=== PATIENT | male | born 1955 | race Caucasian/White ===

== ENCOUNTER → 2023-10-31 13:23 | Outpatient (REF) | payer MEDICARE, OTHER, SELFPAY | LOC: HWRAD 13:23 | PROVIDERS: ATTENDING PHYSICIAN Radiology Radiation Oncology; FAMILY PHYSICIAN Nurse Practitioner | DX: C34.12 Malignant neoplasm of upper lobe, left bronchus or lung (principal) | CPT/HCPCS: 71250 ==

== ENCOUNTER → 2024-02-12 08:14 | Outpatient (REF) | payer MEDICARE, OTHER, SELFPAY | LOC: HWRAD 08:14 | PROVIDERS: ATTENDING PHYSICIAN Radiology Radiation Oncology; FAMILY PHYSICIAN Internal Medicine | DX: C34.12 Malignant neoplasm of upper lobe, left bronchus or lung (principal) | CPT/HCPCS: 71250 ==

== ENCOUNTER → 2024-06-03 10:42 | Outpatient (REF) | payer MEDICARE, OTHER, SELFPAY | LOC: HWRAD 10:42 | PROVIDERS: ATTENDING PHYSICIAN Radiology Radiation Oncology; FAMILY PHYSICIAN Nurse Practitioner | DX: C34.12 Malignant neoplasm of upper lobe, left bronchus or lung (principal) | CPT/HCPCS: 71250 ==

== ENCOUNTER → 2024-11-04 14:48 | Outpatient (REF) | payer MEDICARE, OTHER, SELFPAY | LOC: HWRAD 14:48 | PROVIDERS: ATTENDING PHYSICIAN Physical Medicine & Rehabilitation; FAMILY PHYSICIAN Nurse Practitioner | DX: M54.16 Radiculopathy, lumbar region (principal) | CPT/HCPCS: 72131 ==

== ENCOUNTER → 2024-12-09 12:55 | Outpatient (REF) | payer MEDICARE, OTHER, SELFPAY | LOC: HWRAD 12:55 | PROVIDERS: ATTENDING PHYSICIAN Radiology Radiation Oncology; FAMILY PHYSICIAN Nurse Practitioner; REFERRING PHYSICIAN Physical Medicine & Rehabilitation | DX: C34.12 Malignant neoplasm of upper lobe, left bronchus or lung (principal); Z01.818 Encounter for other preprocedural examination | CPT/HCPCS: 71250; 93005 ==

== ENCOUNTER → 2025-01-11 08:30 | Outpatient (REF) | payer MEDICARE, OTHER, SELFPAY | LOC: RAD 08:30 | PROVIDERS: ATTENDING PHYSICIAN Radiology Radiation Oncology; FAMILY PHYSICIAN Nurse Practitioner | DX: C34.12 Malignant neoplasm of upper lobe, left bronchus or lung (principal) | CPT/HCPCS: 70491; Q9967 ==

== ENCOUNTER → 2025-02-03 08:03 | Outpatient (REF) | payer MEDICARE, OTHER, SELFPAY ==
[2025-02-03] VITALS (8 sets, daily range): BP systolic 68–130; BP diastolic 70–77
[2025-02-03 08:32] LABS: Hematocrit 40.4 % (39.0-52.0); Mean Corp Hgb Conc. 34.7 g/dL (33.0-37.0); Mean Corpuscular Hgb 32.6 pg (27.0-31.0); Mean Corpuscular Volume 94.2 fL (80.0-94.0); Mean Platelet Volume 8.8 fL (7.4-10.4); Platelet Count 331 10^3/uL (130-400); Red Blood Cell Count 4.29 10^6/uL (4.70-6.10); Red Cell Dist. Width 11.7 % (11.5-14.5); White Blood Cell Count 6.7 10^3/uL (4.8-10.8)
[2025-02-03 08:44] LABS: INR 0.85
== END ==
LOC: RADI 08:03
PROVIDERS: ATTENDING PHYSICIAN Radiology Radiation Oncology; FAMILY PHYSICIAN Nurse Practitioner; REFERRING PHYSICIAN Physician Assistant
DX: C77.0 Secondary and unspecified malignant neoplasm of lymph nodes of head, face and neck (principal); C34.90 Malignant neoplasm of unspecified part of unspecified bronchus or lung; D68.8 Other specified coagulation defects
CPT/HCPCS: 88305; 20206; 36415; 76942; 85027; 85610; 88313; 88333; 88341; 88342; 99152; 99153

== ENCOUNTER → 2025-03-03 16:05 | Outpatient (REF) | payer MEDICARE, OTHER, SELFPAY | LOC: RAD 16:05 | PROVIDERS: ATTENDING PHYSICIAN Internal Medicine Hematology & Oncology; FAMILY PHYSICIAN Nurse Practitioner | DX: C34.12 Malignant neoplasm of upper lobe, left bronchus or lung (principal) | CPT/HCPCS: 70470; Q9967 ==

== ENCOUNTER → 2025-03-29 16:25 | Outpatient (REF) | payer MEDICARE, OTHER, SELFPAY ==
[2025-03-29 15:05] LABS: Hematocrit 36.2 % (39.0-52.0); Hemoglobin 12.9 g/dL (13.0-18.0); Mean Corp Hgb Conc. 35.6 g/dL (33.0-37.0); Mean Corpuscular Volume 91.4 fL (80.0-94.0); Platelet Count 334 10^3/uL (130-400); Red Cell Dist. Width 11.6 % (11.5-14.5)
[2025-03-29 15:42] LABS: ALT (SGPT) 20 U/L (0-50); AST (SGOT) 27 U/L (17-59); Albumin 4.2 g/dl (3.5-5.0); Alkaline Phosphatase 155 U/L (38-126); Blood Urea Nitrogen 12 mg/dl (9-20); Calcium 9.4 mg/dl (8.4-10.2); Carbon Dioxide 23 mmol/L (22-30); Chloride 100 mmol/L (98-107); Glucose 91 mg/dl (70-99); Potassium 4.6 mmol/L (3.5-5.1); Sodium 126 mmol/L (135-145); Total Protein 6.8 g/dl (6.3-8.2); eGFR > 60.00
[2025-03-29 16:12] LABS: TSH 1.87 uIU/ml (0.47-4.68)
== END ==
LOC: OIDL 16:25
PROVIDERS: ATTENDING PHYSICIAN Internal Medicine Hematology & Oncology
DX: C34.12 Malignant neoplasm of upper lobe, left bronchus or lung (principal); E03.9 Hypothyroidism, unspecified
CPT/HCPCS: 80053; 84443; 85025

== ENCOUNTER 2025-04-04 18:44 | Emergency (ER) | payer MEDICARE, OTHER, SELFPAY ==
[2025-04-04 18:50] VITALS: BP 120/65
--- NOTE | 2025-04-04 21:16 | ED.GENMED ---
History of Present Illness
<Yaya Echeverria PA-C - Last Filed: 04/06/25 06:38>
General
Chief Complaint: Swelling
Time Seen by Provider: 04/04/25 20:53
History of Present Illness
History of Present Illness:
70-year-old male presents to the emergency department for evaluation of swelling and pain to the left jaw for the past several days. He was encouraged to come to the ED for a CT scan by his oncology team. Currently being treated for lung cancer
with chemotherapy last treatment was last week. Denies any dysphagia or odynophagia. No fevers or night sweats.
Past History
<Yaya Echeverria PA-C - Last Filed: 04/06/25 06:38>
Social History
Tobacco: Non-smoker
Personal:
Living: with family
Employment: Employed
Review of Systems
<Yaya Echeverria PA-C - Last Filed: 04/06/25 06:38>
Review of Systems
Allergies reviewed?: Yes
All Other Systems: ROS reviewed and negative except as documented in HPI and ROS
Phy Exam
<Yaya Echeverria PA-C - Last Filed: 04/06/25 06:38>
Physical Exam
Physical Exam:
GEN: Well appearing, NAD, WDWN
HEENT: Oral mucosa moist, no scleral icterus. Soft boggy swelling to the left mandible, no TMJ range of motion restriction, no crepitus, no palpable adenopathy. Oropharynx clear. Numerous dental caries and abscessed teeth, fluctuance palpated to
the left lower buccal mucosa
Cardiac: Regular rate
Lung: No respiratory distress, no tachypnea
MSK: No gross deformity or injuries
Skin: Good color, no pallor or jaundice, no rashes
Neuro: AO x3, moves all extremities freely
Psych: Calm, cooperative
Scores
<Elizabeth Maria PA-C - Last Filed: 04/05/25 00:33>
Heart Failure Risk
Heart Failure Risk Score: Not Applicable
Course
<Yaya Echeverria PA-C - Last Filed: 04/06/25 06:38>
Orders/Labs/Results
Orders:
Orders
04/04/25 21:15
Complete Blood Count/With Diff Urgent
Comprehensive Metabolic Panel Urgent
Manual Differential Urgent
Serum Osmolality Urgent
Comment: ADD ON
04/04/25 21:17
CT Neck With Iv Contrast Urgent
Comment:
Reason For Exam: L mandible swelling/poss dental abscess
04/04/25 23:18
Add On- LAB Urgent
Tests Added?: serum osmolality
04/04/25 23:29
Ampicillin/Sulbactam 3 G [Unasyn] 3 gm 0.9% Sodium Chloride 100 ml [Nss] 100 ml IV NOW
04/04/25 23:40
Osmolality, Random Urine Urgent
Date Specimen was Collected: 04/04/25
Time Specimen was Collected: 23:39
Urine Sodium Urgent
Date Specimen was Collected: 04/04/25
Time Specimen was Collected: 23:39
Abnormal Lab Results
04/04/25 04/04/25
21:15 23:40
WBC 16.3 H 10^3/uL
(4.8-10.8)
RBC 4.02 L 10^6/uL
(4.70-6.10)
Hgb 12.8 L g/dL
(13.0-18.0)
Hct 36.6 L %
(39.0-52.0)
MCH 31.8 H pg
(27.0-31.0)
Abs Neuts (Manual) 12.7 H 10^3/uL
(1.4-6.5)
Segmented Neutrophils 78 H %
(42-75)
Lymphocytes (Manual) 18 L %
(20-51)
Sodium 125 L mmol/L
(135-145)
Chloride 95 L mmol/L
(98-107)
Serum Osmolality 263 L mOsm/kg
(275-300)
Alkaline Phosphatase 162 H U/L
(38-126)
Urine Osmolality 187 L mOsm/kg
(300-900)
Urine Sodium 8 L mmol/L
(30-90)
04/04/25 21:15
04/04/25 21:15
Vital Signs
Initial and Last Documented VS:
Initial Vital Signs
Temp Pulse Resp BP Pulse Ox
98.0 F 96 20 120/65 98
04/04/25 18:50 04/04/25 18:50 04/04/25 18:50 04/04/25 18:50 04/04/25 18:50
Last Documented Vital Signs
Temp Pulse Resp BP Pulse Ox
98.5 F 96 20 120/65 98
04/04/25 21:26 04/04/25 18:50 04/04/25 18:50 04/04/25 18:50 04/04/25 21:18
Traceylt;Elizabeth Maria PA-C - Last Filed: 04/05/25 00:33>
Orders/Labs/Results
Orders:
Orders
04/04/25 21:15
Complete Blood Count/With Diff Urgent
Comprehensive Metabolic Panel Urgent
Manual Differential Urgent
Serum Osmolality Urgent
Comment: ADD ON
04/04/25 21:17
CT Neck With Iv Contrast Urgent
Comment:
Reason For Exam: L mandible swelling/poss dental abscess
04/04/25 23:18
Add On- LAB Urgent
Tests Added?: serum osmolality
04/04/25 23:29
Ampicillin/Sulbactam 3 G [Unasyn] 3 gm 0.9% Sodium Chloride 100 ml [Nss] 100 ml IV NOW
04/04/25 23:40
Osmolality, Random Urine Urgent
Date Specimen was Collected: 04/04/25
Time Specimen was Collected: 23:39
Urine Sodium Urgent
Date Specimen was Collected: 04/04/25
Time Specimen was Collected: 23:39
Abnormal Lab Results
04/04/25 04/04/25
21:15 23:40
WBC 16.3 H 10^3/uL
(4.8-10.8)
RBC 4.02 L 10^6/uL
(4.70-6.10)
Hgb 12.8 L g/dL
(13.0-18.0)
Hct 36.6 L %
(39.0-52.0)
MCH 31.8 H pg
(27.0-31.0)
Abs Neuts (Manual) 12.7 H 10^3/uL
(1.4-6.5)
Segmented Neutrophils 78 H %
(42-75)
Lymphocytes (Manual) 18 L %
(20-51)
Sodium 125 L mmol/L
(135-145)
Chloride 95 L mmol/L
(98-107)
Serum Osmolality 263 L mOsm/kg
(275-300)
Alkaline Phosphatase 162 H U/L
(38-126)
Urine Osmolality 187 L mOsm/kg
(300-900)
Urine Sodium 8 L mmol/L
(30-90)
04/04/25 21:15
04/04/25 21:15
Vital Signs
Initial and Last Documented VS:
Initial Vital Signs
Temp Pulse Resp BP Pulse Ox
98.0 F 96 20 120/65 98
04/04/25 18:50 04/04/25 18:50 04/04/25 18:50 04/04/25 18:50 04/04/25 18:50
Last Documented Vital Signs
Temp Pulse Resp BP Pulse Ox
98.5 F 96 20 120/65 98
04/04/25 21:26 04/04/25 18:50 04/04/25 18:50 04/04/25 18:50 04/04/25 21:18
Procedures
<Yaya Echeverria PA-C - Last Filed: 04/06/25 06:38>
IV Access
Indication: RN unable to obtain
Performed by:: Yaya Echeverria PA-C
Site:: L forearm
Gauge:: 20g
Ultrasound Guidance: Yes
<Yaya Echeverria PA-C - Last Filed: 04/06/25 06:38>
MDM/Problems Addressed
MDM/Problems Addressed:
70-year-old male presents with left-sided jaw swelling, found to have dental abscess by imaging and clinical exam. From the standpoint although he has leukocytosis I feel he is reasonable for discharge home however will give IV antibiotics in the
ED as the patient is immunocompromised on chemotherapy. 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
years. However in the past 1 to 2 weeks he has not consumed as much alcohol due to chemotherapy and diarrhea. Serum osmolality and urine sodium/osmolality sent for completeness however will likely recommend a fluid restriction of 48 ounces with
follow-up sodium level in 5 to 7 days.
<Yaya Echeverria PA-C - Last Filed: 04/06/25 06:38>
*Pulse Oximetry
SaO2: 98
Oxygen Mode of Delivery: Room air
<Elizabeth Maria PA-C - Last Filed: 04/05/25 00:33>
*Pulse Oximetry
Patient hypoxic: no
*Critical Care Note
Total Time (30-74mins, 75-104mins- exclusive of procedures): Not Applicable
<Elizabeth Maria PA-C - Last Filed: 04/05/25 00:33>
Update Note
Update Note:
On my assessment, patient is well appearing and no acute distress. He has no additional questions. We discussed fluid restriction. Patient stable for discharge.
ED Attending Note
<Yaya Echeverria PA-C - Last Filed: 04/06/25 06:38>
-
Portions of this chart may have been created with voice recognition software.� Occasional wrong word or��sound alike� substitutions may have occurred due to the inherent limitations of voice recognition software.
Discharge Plan
Departure
Patient Disposition: Home (Routine Discharge)
Date of Disposition: 04/05/25
Time of Disposition: 00:34
Patient with high blood pressure during this ER visit?: No
Discharge Problem:
Abscess, dental, Acute hyponatremia
Instructions: Hyponatremia, Dental abscess - ED discharge instructions
Prescriptions:
New
amoxicillin-pot clavulanate 875-125 mg tablet
1 tab PO BID Qty: 14 0RF
No Action
cetirizine-pseudoephedrine [Zyrtec-D] 1 EACH tablet extended release 12 hr
1 ea PO DAILYPRN PRN (Reason: allergies)
atorvastatin 20 MG tablet
20 mg PO DAILY
cetirizine [Zyrtec] 10 MG tablet
10 mg PO DAILY
fluticasone propion-salmeterol [Wixela Inhub] 1 EACH blister with device
1 ea IH BID
Referrals:
Nellie Howe CRNP [Family Provider, Internal Medicine]
Activity Restrictions/Additional Instructions:
In regards to your dental infection we will start you on antibiotics, please follow-up with your dentist as soon as possible
Regards to your low sodium, you have had this in the past however not as severe as today. I suspect this is largely due to your excess beer intake, and decreasing your beer consumption will improve these numbers however for the next week I will
recommend a fluid restriction of 48 ounces (all liquids!) daily for 7 days, and have your sodium level rechecked in 5-7 days
Interventions
Interventions:
*Risk Screen - Suicide Last Done: 04/04/25 21:23
*General Assessment Last Done: 04/04/25 18:50
*Neglect/Abuse Screening Last Done: 04/04/25 21:23
*ED- Fall Risk Assessment Last Done: 04/04/25 21:23
*ED COVID-19 Vaccine History Last Done: 04/04/25 21:23
*Nursing Disposition Last Done: 04/05/25 00:54
ED- Cardiac Assessment Last Done: 04/04/25 21:22
ED- Pulmonary Assessment Last Done: 04/04/25 21:22
ED-Skin Assessment Last Done: 04/04/25 21:22
Discharge Date and Time
Discharge Date/Time: 04/05/25 00:54
Print Language: SWEDISH
[2025-04-04 21:36] LABS: Hematocrit 36.6 % (39.0-52.0); Hemoglobin 12.8 g/dL (13.0-18.0); Mean Corp Hgb Conc. 35.0 g/dL (33.0-37.0); Mean Corpuscular Volume 91.0 fL (80.0-94.0); Platelet Count 229 10^3/uL (130-400); Red Cell Dist. Width 11.7 % (11.5-14.5)
[2025-04-04 21:57] LABS: ALT (SGPT) 26 U/L (0-50); AST (SGOT) 29 U/L (17-59); Albumin 4.0 g/dl (3.5-5.0); Alkaline Phosphatase 162 U/L (38-126); Blood Urea Nitrogen 20 mg/dl (9-20); Calcium 8.6 mg/dl (8.4-10.2); Carbon Dioxide 28 mmol/L (22-30); Chloride 95 mmol/L (98-107); Glucose 88 mg/dl (70-99); Potassium 3.8 mmol/L (3.5-5.1); Sodium 125 mmol/L (135-145); Total Protein 6.6 g/dl (6.3-8.2); eGFR > 60.00
[2025-04-04 23:14] LABS: Absolute Neutrophils -Man Diff 12.7 10^3/uL (1.4-6.5); Normal RBC Morphology Yes; Platelets Checked Yes; Total Cells Counted 100
[2025-04-04] MEDS: UNASYN IV (23:33)
== END 2025-04-05 00:54 | disposition home or self-care (01) ==
LOC: EMR 18:44
PROVIDERS: Emergency Medicine; Physician Assistant; EMERGENCY PHYSICIAN Emergency Medicine; FAMILY PHYSICIAN Nurse Practitioner
DX: K04.7 Periapical abscess without sinus (principal); E87.1 Hypo-osmolality and hyponatremia; C34.90 Malignant neoplasm of unspecified part of unspecified bronchus or lung; Z79.60 Long term (current) use of unspecified immunomodulators and immunosuppressants; D84.821 Immunodeficiency due to drugs
CPT/HCPCS: 99284; 96374; 70491; 80053; 83930; 83935; 84300; 85025; Q9967

== ENCOUNTER → 2025-04-15 08:35 | Outpatient (REF) | payer MEDICARE, OTHER, SELFPAY ==
[2025-04-15 09:11] VITALS: BP 125/79; BP_SYST 73
[2025-04-15 09:40] VITALS: BMI 29.4
[2025-04-15] MEDS: ANCEF 10 IV (09:52)
[2025-04-15 10:30] VITALS: BP 127/76; BP_SYST 74
[2025-04-15 10:36] VITALS: BP 108/66
== END ==
LOC: RADI 08:35
PROVIDERS: ATTENDING PHYSICIAN Internal Medicine Hematology & Oncology
DX: C34.12 Malignant neoplasm of upper lobe, left bronchus or lung (principal)
CPT/HCPCS: 36561; 76942; 77002; 99152; C1788

== ENCOUNTER → 2025-04-19 07:09 | Outpatient (REF) | payer MEDICARE, OTHER, SELFPAY ==
[2025-04-19 09:27] LABS: Hematocrit 35.1 % (39.0-52.0); Hemoglobin 12.0 g/dL (13.0-18.0); Mean Corp Hgb Conc. 34.2 g/dL (33.0-37.0); Mean Corpuscular Volume 95.1 fL (80.0-94.0); Nucleated Red Blood Cells % 0 % (-); Platelet Count 378 10^3/uL (130-400); Red Cell Dist. Width 12.0 % (11.5-14.5)
[2025-04-19 09:48] LABS: ALT (SGPT) 24 U/L (0-50); AST (SGOT) 23 U/L (17-59); Albumin 3.7 g/dl (3.5-5.0); Alkaline Phosphatase 184 U/L (38-126); Blood Urea Nitrogen 12 mg/dl (9-20); Calcium 9.0 mg/dl (8.4-10.2); Carbon Dioxide 27 mmol/L (22-30); Chloride 107 mmol/L (98-107); Glucose 84 mg/dl (70-99); Potassium 4.6 mmol/L (3.5-5.1); Sodium 139 mmol/L (135-145); Total Protein 6.3 g/dl (6.3-8.2); eGFR > 60.00
[2025-04-19 10:16] LABS: TSH 3.24 uIU/ml (0.47-4.68)
== END ==
LOC: HWLAB 07:09
PROVIDERS: ATTENDING PHYSICIAN Internal Medicine Hematology & Oncology; FAMILY PHYSICIAN Nurse Practitioner
DX: C34.12 Malignant neoplasm of upper lobe, left bronchus or lung (principal); E78.5 Hyperlipidemia, unspecified
CPT/HCPCS: 36415; 80053; 84443; 85025

== ENCOUNTER → 2025-05-10 07:12 | Outpatient (REF) | payer MEDICARE, OTHER, SELFPAY ==
[2025-05-10 09:44] LABS: Hematocrit 31.3 % (39.0-52.0); Hemoglobin 10.5 g/dL (13.0-18.0); Mean Corp Hgb Conc. 33.5 g/dL (33.0-37.0); Mean Corpuscular Volume 96.9 fL (80.0-94.0); Nucleated Red Blood Cells % 0 % (-); Platelet Count 205 10^3/uL (130-400); Red Cell Dist. Width 13.0 % (11.5-14.5)
[2025-05-10 09:55] LABS: ALT (SGPT) 23 U/L (0-50); AST (SGOT) 24 U/L (17-59); Albumin 3.8 g/dl (3.5-5.0); Alkaline Phosphatase 167 U/L (38-126); Blood Urea Nitrogen 14 mg/dl (9-20); Calcium 9.1 mg/dl (8.4-10.2); Carbon Dioxide 26 mmol/L (22-30); Chloride 107 mmol/L (98-107); Glucose 87 mg/dl (70-99); Potassium 4.5 mmol/L (3.5-5.1); Sodium 138 mmol/L (135-145); Total Protein 6.4 g/dl (6.3-8.2); eGFR > 60.00
[2025-05-10 10:24] LABS: TSH 3.84 uIU/ml (0.47-4.68)
== END ==
LOC: HWLAB 07:12
PROVIDERS: ATTENDING PHYSICIAN Internal Medicine Hematology & Oncology; FAMILY PHYSICIAN Nurse Practitioner
DX: C34.12 Malignant neoplasm of upper lobe, left bronchus or lung (principal); E78.5 Hyperlipidemia, unspecified
CPT/HCPCS: 36415; 80053; 84443; 85025

== ENCOUNTER → 2025-05-31 07:11 | Outpatient (REF) | payer MEDICARE, OTHER, SELFPAY ==
[2025-05-31 09:45] LABS: Hematocrit 31.5 % (39.0-52.0); Hemoglobin 10.5 g/dL (13.0-18.0); Mean Corp Hgb Conc. 33.3 g/dL (33.0-37.0); Mean Corpuscular Volume 100.3 fL (80.0-94.0); Nucleated Red Blood Cells % 0 % (-); Platelet Count 230 10^3/uL (130-400); Red Cell Dist. Width 15.5 % (11.5-14.5)
[2025-05-31 15:54] LABS: TSH 3.67 uIU/ml (0.47-4.68)
[2025-05-31 15:57] LABS: ALT (SGPT) 25 U/L (0-50); AST (SGOT) 26 U/L (17-59); Albumin 4.1 g/dl (3.5-5.0); Alkaline Phosphatase 163 U/L (38-126); Blood Urea Nitrogen 14 mg/dl (9-20); Calcium 9.5 mg/dl (8.4-10.2); Carbon Dioxide 27 mmol/L (22-30); Chloride 106 mmol/L (98-107); Glucose 89 mg/dl (70-99); Potassium 4.8 mmol/L (3.5-5.1); Sodium 138 mmol/L (135-145); Total Protein 6.7 g/dl (6.3-8.2); eGFR > 60.00
== END ==
LOC: HWLAB 07:11
PROVIDERS: ATTENDING PHYSICIAN Internal Medicine Hematology & Oncology; FAMILY PHYSICIAN Nurse Practitioner
DX: C34.12 Malignant neoplasm of upper lobe, left bronchus or lung (principal); E78.5 Hyperlipidemia, unspecified
CPT/HCPCS: 36415; 80053; 84443; 85025

== ENCOUNTER → 2025-06-17 11:37 | Outpatient (REF) | payer MEDICARE, OTHER, SELFPAY | LOC: RAD 11:37 | PROVIDERS: ATTENDING PHYSICIAN Radiology Radiation Oncology; FAMILY PHYSICIAN Nurse Practitioner | DX: M79.89 Other specified soft tissue disorders (principal); R22.32 Localized swelling, mass and lump, left upper limb | CPT/HCPCS: 93971 ==

== ENCOUNTER → 2025-06-21 07:16 | Outpatient (REF) | payer MEDICARE, OTHER, SELFPAY ==
[2025-06-21 09:37] LABS: Hematocrit 29.3 % (39.0-52.0); Hemoglobin 10.1 g/dL (13.0-18.0); Mean Corp Hgb Conc. 34.5 g/dL (33.0-37.0); Mean Corpuscular Volume 102.4 fL (80.0-94.0); Nucleated Red Blood Cells % 0 % (-); Platelet Count 168 10^3/uL (130-400); Red Cell Dist. Width 15.8 % (11.5-14.5)
[2025-06-21 09:46] LABS: ALT (SGPT) 27 U/L (0-50); AST (SGOT) 28 U/L (17-59); Albumin 4.1 g/dl (3.5-5.0); Alkaline Phosphatase 156 U/L (38-126); Blood Urea Nitrogen 15 mg/dl (9-20); Calcium 9.3 mg/dl (8.4-10.2); Carbon Dioxide 27 mmol/L (22-30); Chloride 104 mmol/L (98-107); Glucose 91 mg/dl (70-99); Potassium 4.7 mmol/L (3.5-5.1); Sodium 137 mmol/L (135-145); Total Protein 6.8 g/dl (6.3-8.2); eGFR > 60.00
[2025-06-21 10:18] LABS: TSH 4.70 uIU/ml (0.47-4.68)
== END ==
LOC: HWLAB 07:16
PROVIDERS: ATTENDING PHYSICIAN Internal Medicine Hematology & Oncology; FAMILY PHYSICIAN Nurse Practitioner
DX: C34.12 Malignant neoplasm of upper lobe, left bronchus or lung (principal); E78.5 Hyperlipidemia, unspecified
CPT/HCPCS: 36415; 80053; 84443; 85025

== ENCOUNTER → 2025-06-22 09:59 | Outpatient (REF) | payer MEDICARE, OTHER, SELFPAY ==
[2025-06-22 10:17] LABS: Glucose 87 mg/dl (70-99)
== END ==
LOC: PET 09:59
PROVIDERS: ATTENDING PHYSICIAN Internal Medicine Hematology & Oncology
DX: C34.12 Malignant neoplasm of upper lobe, left bronchus or lung (principal)
CPT/HCPCS: 36415; 82947

== ENCOUNTER → 2025-07-12 07:07 | Outpatient (REF) | payer MEDICARE, OTHER, SELFPAY ==
[2025-07-12 10:47] LABS: Hematocrit 28.8 % (39.0-52.0); Hemoglobin 9.8 g/dL (13.0-18.0); Mean Corp Hgb Conc. 34.0 g/dL (33.0-37.0); Mean Corpuscular Volume 106.7 fL (80.0-94.0); Nucleated Red Blood Cells % 0 % (-); Platelet Count 182 10^3/uL (130-400); Red Cell Dist. Width 15.3 % (11.5-14.5)
[2025-07-12 10:54] LABS: ALT (SGPT) 28 U/L (0-50); AST (SGOT) 27 U/L (17-59); Albumin 4.0 g/dl (3.5-5.0); Alkaline Phosphatase 145 U/L (38-126); Blood Urea Nitrogen 11 mg/dl (9-20); Calcium 9.0 mg/dl (8.4-10.2); Carbon Dioxide 28 mmol/L (22-30); Chloride 107 mmol/L (98-107); Glucose 87 mg/dl (70-99); Potassium 4.5 mmol/L (3.5-5.1); Sodium 135 mmol/L (135-145); Total Protein 6.7 g/dl (6.3-8.2); eGFR > 60.00
[2025-07-12 11:21] LABS: TSH 3.55 uIU/ml (0.47-4.68)
== END ==
LOC: HWLAB 07:07
PROVIDERS: ATTENDING PHYSICIAN Internal Medicine Hematology & Oncology; FAMILY PHYSICIAN Nurse Practitioner
DX: C34.12 Malignant neoplasm of upper lobe, left bronchus or lung (principal); E78.5 Hyperlipidemia, unspecified
CPT/HCPCS: 36415; 80053; 84443; 85025

== ENCOUNTER → 2025-08-02 07:54 | Outpatient (REF) | payer MEDICARE, OTHER, SELFPAY ==
[2025-08-02 10:09] LABS: Hematocrit 30.5 % (39.0-52.0); Hemoglobin 10.0 g/dL (13.0-18.0); Mean Corp Hgb Conc. 32.8 g/dL (33.0-37.0); Mean Corpuscular Volume 112.1 fL (80.0-94.0); Nucleated Red Blood Cells % 0 % (-); Platelet Count 209 10^3/uL (130-400); Red Cell Dist. Width 14.0 % (11.5-14.5)
[2025-08-02 10:51] LABS: ALT (SGPT) 24 U/L (0-50); AST (SGOT) 26 U/L (17-59); Albumin 4.3 g/dl (3.5-5.0); Alkaline Phosphatase 179 U/L (38-126); Blood Urea Nitrogen 14 mg/dl (9-20); Calcium 9.4 mg/dl (8.4-10.2); Carbon Dioxide 26 mmol/L (22-30); Chloride 104 mmol/L (98-107); Glucose 85 mg/dl (70-99); Potassium 4.6 mmol/L (3.5-5.1); Sodium 135 mmol/L (135-145); Total Protein 7.1 g/dl (6.3-8.2); eGFR > 60.00
[2025-08-02 11:27] LABS: TSH 3.33 uIU/ml (0.47-4.68)
== END ==
LOC: HWLAB 07:54
PROVIDERS: ATTENDING PHYSICIAN Internal Medicine Hematology & Oncology; FAMILY PHYSICIAN Nurse Practitioner
DX: E78.5 Hyperlipidemia, unspecified (principal); C34.12 Malignant neoplasm of upper lobe, left bronchus or lung
CPT/HCPCS: 36415; 80053; 84443; 85025

== ENCOUNTER → 2025-08-23 07:23 | Outpatient (REF) | payer MEDICARE, OTHER, SELFPAY ==
[2025-08-23 08:02] LABS: Hematocrit 36.0 % (39.0-52.0); Hemoglobin 11.7 g/dL (13.0-18.0); Mean Corp Hgb Conc. 32.5 g/dL (33.0-37.0); Mean Corpuscular Volume 108.4 fL (80.0-94.0); Nucleated Red Blood Cells % 0 % (-); Platelet Count 261 10^3/uL (130-400); Red Cell Dist. Width 11.8 % (11.5-14.5)
[2025-08-23 08:44] LABS: ALT (SGPT) 22 U/L (0-50); AST (SGOT) 31 U/L (17-59); Albumin 4.3 g/dl (3.5-5.0); Alkaline Phosphatase 133 U/L (38-126); Blood Urea Nitrogen 12 mg/dl (9-20); Calcium 9.4 mg/dl (8.4-10.2); Carbon Dioxide 30 mmol/L (22-30); Chloride 101 mmol/L (98-107); Glucose 82 mg/dl (70-99); Potassium 4.6 mmol/L (3.5-5.1); Sodium 135 mmol/L (135-145); Total Protein 7.2 g/dl (6.3-8.2); eGFR > 60.00
[2025-08-23 09:10] LABS: TSH 3.32 uIU/ml (0.47-4.68)
== END ==
LOC: REG 07:23
PROVIDERS: ATTENDING PHYSICIAN Internal Medicine Hematology & Oncology; FAMILY PHYSICIAN Nurse Practitioner
DX: C34.12 Malignant neoplasm of upper lobe, left bronchus or lung (principal); E78.5 Hyperlipidemia, unspecified
CPT/HCPCS: 36415; 80053; 84443; 85025

== ENCOUNTER → 2025-09-13 07:21 | Outpatient (REF) | payer MEDICARE, OTHER, SELFPAY ==
[2025-09-13 08:43] LABS: Hematocrit 36.4 % (39.0-52.0); Hemoglobin 12.1 g/dL (13.0-18.0); Mean Corp Hgb Conc. 33.2 g/dL (33.0-37.0); Mean Corpuscular Volume 100.8 fL (80.0-94.0); Nucleated Red Blood Cells % 0 % (-); Platelet Count 252 10^3/uL (130-400); Red Cell Dist. Width 11.4 % (11.5-14.5)
[2025-09-13 09:15] LABS: ALT (SGPT) 20 U/L (0-50); AST (SGOT) 27 U/L (17-59); Albumin 4.3 g/dl (3.5-5.0); Alkaline Phosphatase 127 U/L (38-126); Blood Urea Nitrogen 17 mg/dl (9-20); Calcium 9.4 mg/dl (8.4-10.2); Carbon Dioxide 26 mmol/L (22-30); Chloride 104 mmol/L (98-107); Glucose 87 mg/dl (70-99); Potassium 4.7 mmol/L (3.5-5.1); Sodium 137 mmol/L (135-145); Total Protein 7.0 g/dl (6.3-8.2); eGFR > 60.00
[2025-09-13 09:41] LABS: TSH 3.23 uIU/ml (0.47-4.68)
== END ==
LOC: REG 07:21
PROVIDERS: ATTENDING PHYSICIAN Internal Medicine Hematology & Oncology; FAMILY PHYSICIAN Nurse Practitioner
DX: C34.12 Malignant neoplasm of upper lobe, left bronchus or lung (principal); E78.5 Hyperlipidemia, unspecified
CPT/HCPCS: 36415; 80053; 84443; 85025